=== PATIENT | male | born 1970 | race Caucasian/White ===

== ENCOUNTER 2022-05-06 09:10 | Outpatient (CLI) | payer OTHER, SELFPAY ==
[2022-05-06 09:21] LABS: Hematocrit 43.1 % (37.0-53.0); Hemoglobin* 14.4 gm/dL (13.5-17.5); Mean Corpuscular HGB Conc 33 gm/dL (32-36); Mean Corpuscular Hemoglobin 30 pg (26-34); Mean Corpuscular Volume 90 fL (80-100); Platelet Count* 191 K/uL (140-440); Red Blood Count 4.79 m/uL (4.30-5.90); White Blood Count* 8.33 K/uL (4.50-11.00)
[2022-05-06 09:23] LABS: Slide Review Reflex No
[2022-05-06 13:41] LABS: Albumin* 4.4 g/dL (3.3-5.0)
[2022-05-06 13:42] LABS: Chloride* 102 mmol/L (96-114); Potassium* 4.4 mmol/L (3.6-5.1); Sodium* 137 mmol/L (135-149)
[2022-05-06 13:44] LABS: Aspartate Amino Transferase* 41 U/L (12-35); Bilirubin Total* 0.7 mg/dL (0.1-1.5); Carbon Dioxide* 26 mmol/L (20-32); Cholesterol* 274 mg/dL (90-199); Estimated Glomerular Filt Rate 90 ml/min
[2022-05-06 13:45] LABS: Alanine Aminotransferase* 47 U/L (4-50); Alkaline Phosphatase* 59 U/L (40-150); Blood Urea Nitrogen* 19 mg/dL (7-30); Calcium* 9.5 mg/dL (8.4-10.6); Glucose* 106 mg/dL (60-115); HDL Cholesterol* 47 mg/dL (>=40); LDL Cholesterol Calculated 201 mg/dL (<100); Total Protein* 7.5 g/dL (6.0-8.3); Triglycerides* 131 mg/dL (40-149)
[2022-05-06 14:13] LABS: PSA Screen* 0.97 ng/mL (0.10-4.00)
== END 2022-05-06 09:11 | disposition home or self-care (01) ==
PROVIDERS: PCP Physician Assistant Medical; Visit Provider Physician Assistant Medical
DX: Z00.00 Encounter for general adult medical examination without abnormal findings (principal); E78.5 Hyperlipidemia, unspecified; Z12.5 Encounter for screening for malignant neoplasm of prostate; Z13.1 Encounter for screening for diabetes mellitus
CPT/HCPCS: 80053; 80061; 84153; 85027

== ENCOUNTER 2023-06-09 07:58 | Outpatient (CLI) | payer OTHER, SELFPAY | END 2023-06-09 07:59 | disposition home or self-care (01) | PROVIDERS: PCP Physician Assistant Medical; Visit Provider Physician Assistant Medical | DX: Z00.00 Encounter for general adult medical examination without abnormal findings (principal); E78.5 Hyperlipidemia, unspecified; Z12.5 Encounter for screening for malignant neoplasm of prostate; Z13.29 Encounter for screening for other suspected endocrine disorder | CPT/HCPCS: 80053; 80061; 84153; 84443 ==

== ENCOUNTER 2025-05-01 09:24 | Outpatient (CLI) | payer OTHER, SELFPAY | END 2025-05-01 09:25 | disposition home or self-care (01) | PROVIDERS: PCP Physician Assistant Medical; Referring Provider Physician Assistant Medical; Visit Provider Physician Assistant Medical | DX: E78.2 Mixed hyperlipidemia (principal) | CPT/HCPCS: 80053; 80061; 84443; G0103 ==